=== PATIENT | female | born 1965 | race Caucasian/White ===

== ENCOUNTER 2017-12-26 23:22 | Emergency (ER) | payer BC, OTHER ==
[2017-12-27] MEDS ORDERED: Rabies Immune Globulin 10 ML* 150 UNIT/ML VIAL IM ONE (00:04)
[2017-12-27] MEDS ORDERED: Rabies Vaccine (RabAvert)* 2.5 UNITS VIAL IM ONE (00:06)
--- NOTE | 2017-12-27 00:06 | ED ---
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 The Pt was exposed to cat that was bitten by an unknown wild animal. The animal had bitten the cat in the neck and the Pt states she was possibly exposed when she examined the cat and noticed saliva from the wound was on her hand where she had an opened wound. Due to the open wound she has concerns about possibly geraldine rabies due to contacting the saliva of the wild animal. - History of Current Complaint Chief Complaint: EDGeneral Stated Complaint: EXPOSURE Time Seen by Provider: 12/26/17 23:53 Hx Obtained From: Patient Hx Last Menstrual Period: 10/07/14 Onset of Injury: Happened hours ago Severity Currently: None Pain Intensity: 0 Pain Scale Used: 0-10 Numeric Associated Signs And Symptoms: Positive: Negative - Allergies/Home Medications Allergies/Adverse Reactions: Allergies Allergy/AdvReac Type Severity Reaction Status Date / Time silicone Allergy Rash Verified 12/26/17 23:31 sodium benzoate Allergy Hives Verified 12/26/17 23:31 Sulfa (Sulfonamide Allergy Rash And Verified 12/26/17 23:31 Antibiotics) Itching PMH/Surg Hx/FS Hx/Imm Hx Endocrine/Hematology History: Reports: Hx Thyroid Disease Denies: Hx Diabetes Cardiovascular History: Denies: Hx Hypertension Respiratory History: Reports: Hx Asthma - r/t URI, Hx Chronic Bronchitis - Acute Spasmodic, Hx Pneumonia, Hx Seasonal Allergies Denies: Hx Chronic Obstructive Pulmonary Disease (COPD) GI History: Reports: Hx Gastroesophageal Reflux Disease Denies: Hx Ulcer History: Reports: Hx Kidney Stones Musculoskeletal History: Reports: Hx Arthritis, Hx Back Problems, Hx Bursitis, Hx Tendonitis Denies: Hx Scoliosis Sensory History: Reports: Hx Contacts or Glasses, Hx Hearing Problem - Minor Hearing Loss Opthamlomology History: Reports: Hx Contacts or Glasses Neurological History: Reports: Hx Headaches, Hx Migraine Denies: Other Neuro Impairments/Disorders Psychiatric History: Reports: Hx Anxiety - Cancer History Hx Chemotherapy: No Hx Radiation Therapy: No - Surgical History Surgery Procedure, Year, and Place: RT KNEE ARTHROSCOPY/UTERINE FIBROID REMOVED (NON INVASIVE) lobectomy Infectious Disease History: No Infectious Disease History: Denies: Hx Clostridium Difficile, Hx Hepatitis, Hx Human Immunodeficiency Virus (HIV), Hx of Known/Suspected MRSA, Hx Shingles, Hx Tuberculosis, Hx Known/ Suspected VRE, Hx Known/Suspected VRSA, History Other Infectious Disease, Traveled Outside the [place] in Last 30 Days - Social History Alcohol Use: Rare Substance Use Type: Reports: None Smoking Status (MU): Never Smoked Tobacco Have You Smoked in the Last Year: No Review of Systems Negative: Fever Negative: Headache All Other Systems Reviewed And Are Negative: Yes Physical Exam - Summary Physical Exam Summary: Appearance: Well-appearing, Well-nourished, lying in bed comfortable Skin: Warm, dry, no obvious rash Eyes: sclera anicteric, no conjunctival pallor ENT: mucous membranes moist Neck: deferred Respiratory: No signs of respiratory distress Cardiovascular: Appears well perfused, pulses are nml Abdomen: deferred Musculoskeletal: Moving all 4 extremities without obvious discomfort Neurological: Awake and alert, mentation is normal, speech is fluent and appropriate Psychiatric: affect is normal, does not appear anxious or depressed Triage Information Reviewed: Yes Vital Signs On Initial Exam: Initial Vitals Temp Pulse Resp BP Pulse Ox 98.3 F 83 16 133/68 97 12/26/17 23:26 12/26/17 23:26 12/26/17 23:26 12/26/17 23:26 12/26/17 23:26 Vital Signs Reviewed: Yes Diagnostics - Vital Signs Vital Signs Temp Pulse Resp BP Pulse Ox 12/26/17 23:26 98.3 F 83 16 133/68 97 - Laboratory Lab Statement: Any lab studies that have been ordered have been reviewed, and results considered in the medical decision making process. Bite Injury Course/Dx - Course Course Of Treatment: This patient is a 52 year old F presenting to [facility] accompanied with a chief complaint of possible rabies exposure IV THERAPY NURSE. The Pt was given the first precautionary prophylaxis rabies vaccination. The plan for obtaining following treatments and discharge was discussed and the Pt was agreeable with this plan. - Diagnoses Provider Diagnosis: Rabies, need for prophylactic vaccination against Discharge - Sign-Out/Discharge Documenting (check all that apply): Patient Departure - Discharge - Discharge Plan Condition: Stable Disposition: HOME Patient Education Materials: Rabies Immune Globulin (By injection), Rabies (ED) , Rabies Vaccine (ED) Referrals: Bryant Gudino MD [Primary Care Provider] - Additional Instructions: I believe the Department of Public Health can complete the rabies series for you. The next injection should be done Friday or Friday. - Attestation Statements Document Initiated by Scribe: Yes Documenting Scribe: Bertram Mckinley Provider For Whom Scribe is Documenting (Include Credential): Thai Walton MD Scribe Attestation: IBertram, scribed for Thai Walton MD on 12/27/17 at 0051.
[2017-12-27 01:13] VITALS: BP 112/74
== END 2017-12-27 01:00 | disposition home or self-care (01) ==
LOC: ED 23:22
DX: Z20.3 Contact with and (suspected) exposure to rabies (principal)
CPT/HCPCS: 90375; 90471; 90675; 99282

== ENCOUNTER 2017-12-29 11:00 | Emergency (ER) | payer BC, OTHER ==
[2017-12-29 11:07] VITALS: BP 145/75
[2017-12-29] MEDS ORDERED: Rabies Immune Globulin 2 ML* 150 UNITS/ML VIAL IM ONE (12:18)
--- NOTE | 2017-12-29 15:21 | ED ---
Bite Injury/Animal - HPI Summary HPI Summary: Patient is a 52 y/o F presenting to ED for rabies immunoglobuin. She was here three days ago for rabies vaccine and immunoglobin. Patient reported that her cat was bitten by an unknown animal. She investigated the cat's puncture wounds with her bare hands and notes that at the time she had two open cuts on her hands from a coin box inspector. Patient states that she received the rabies vaccine and immunoglobin full course while at [facility] three days ago but states that she did not receive immunoglobin at her cut sites. Health department sent patient back to ED to receive immunoglobin at these sites. PMHx of HTN and diabetes is denied. Patient denies foaming at the mouth, fever, chills, BONILLA, ear pain, sore throat, blurred vision, double vision, neck pain, CP, SOB, ABD pain, back pain, dysuria, hematuria, blood in the stool, edema, bruising, and rashes. On triage, pain is denied, nothing is noted to aggravate/alleviate Sx. Home medications and allergies are reviewed. - History of Current Complaint Chief Complaint: EDAnimalBite Stated Complaint: ADD RABIES INJECTION Time Seen by Provider: 12/29/17 11:01 Hx Obtained From: Patient Hx Last Menstrual Period: 10/07/14 Onset of Injury: Happened days ago - incident occurred three days ago Type of Bite: Wild Animal - patient's cat was bit by wild animal, patient came in contact with wild animal's saliva Has Animal Been Immunized?: No Severity Currently: None Pain Intensity: 0 Pain Scale Used: 0-10 Numeric Character: Abrasion/Laceration - saliva came in contact with patient's abrasion Aggravating Factor(s): Nothing Alleviating Factor(s): Nothing Associated Signs And Symptoms: Positive: Negative Animal Available for Observation: No - Allergies/Home Medications Allergies/Adverse Reactions: Allergies Allergy/AdvReac Type Severity Reaction Status Date / Time neomycin Allergy Rash Verified 12/29/17 11:21 silicone Allergy Rash Verified 12/29/17 11:21 sodium benzoate Allergy Hives Verified 12/29/17 11:21 Sulfa (Sulfonamide Allergy Rash And Verified 12/29/17 11:21 Antibiotics) Itching Home Medications: Home Medications Acetaminophen [Pain Reliever] 500 - 1,000 mg PO DAILY PRN 12/29/17 [History Confirmed 12/29/17] LoraTADine TAB(NF) [Claritin 10 MG TAB(NF)] 10 mg PO DAILY 12/29/17 [History Confirmed 12/29/17] Mesalamine CAP(NF) [Pentasa(NF)] 500 mg PO BID 12/29/17 [History Confirmed 12/29] Naproxen Sodium [Aleve] 220 mg PO DAILY PRN 12/29/17 [History Confirmed 12/29/17 ] Thyroid,Pork [Thyroid] 120 mg PO DAILY 12/29/17 [History Confirmed 12/29/17] PMH/Surg Hx/FS Hx/Imm Hx Endocrine/Hematology History: Reports: Hx Thyroid Disease Denies: Hx Diabetes Cardiovascular History: Denies: Hx Hypertension Respiratory History: Reports: Hx Asthma - r/t URI, Hx Chronic Bronchitis - Acute Spasmodic, Hx Pneumonia, Hx Seasonal Allergies Denies: Hx Chronic Obstructive Pulmonary Disease (COPD) GI History: Reports: Hx Gastroesophageal Reflux Disease Denies: Hx Ulcer History: Reports: Hx Kidney Stones Musculoskeletal History: Reports: Hx Arthritis, Hx Back Problems, Hx Bursitis, Hx Tendonitis Denies: Hx Scoliosis Sensory History: Reports: Hx Contacts or Glasses, Hx Hearing Problem - Minor Hearing Loss Opthamlomology History: Reports: Hx Contacts or Glasses Neurological History: Reports: Hx Headaches, Hx Migraine Denies: Other Neuro Impairments/Disorders Psychiatric History: Reports: Hx Anxiety - Cancer History Hx Chemotherapy: No Hx Radiation Therapy: No - Surgical History Surgery Procedure, Year, and Place: RT KNEE ARTHROSCOPY/UTERINE FIBROID REMOVED (NON INVASIVE) lobectomy Infectious Disease History: No Infectious Disease History: Denies: Hx Clostridium Difficile, Hx Hepatitis, Hx Human Immunodeficiency Virus (HIV), Hx of Known/Suspected MRSA, Hx Shingles, Hx Tuberculosis, Hx Known/ Suspected VRE, Hx Known/Suspected VRSA, History Other Infectious Disease, Traveled Outside the [place] in Last 30 Days - Family History Known Family History: Negative: Blood Disorder - Social History Alcohol Use: None Substance Use Type: Reports: None Smoking Status (MU): Never Smoked Tobacco Have You Smoked in the Last Year: No Review of Systems Positive: Other - NEGATIVE: mouth foaming . Negative: Fever, Chills Positive: Other - NEGATIVE: double vision . Negative: Blurred Vision Negative: Sore Throat, Ear Ache Negative: Chest Pain Negative: Shortness Of Breath Negative: Abdominal Pain, Vomiting, Diarrhea Positive: other - NEGATIVE: blood in stool . Negative: dysuria, hematuria Negative: Edema Positive: Other - two abrasions at hands . Negative: Rash, Bruising Negative: Headache Negative: Anxious, Depressed All Other Systems Reviewed And Are Negative: No Physical Exam - Summary Physical Exam Summary: Appearance: Alert, conversive, nontoxic appearing Skin: Warm, dry, no mottling, no rashes, no contusions; two small closed abrasions at left index finger, lateral aspect of the distal tip and dorsum of the right middle finger at the PIP joint. HEENT: EOMI, PERRL, moist mucous membranes Neck: No masses on the neck, supple Respiratory: Clear to auscultation, breath sounds present, no rales, no rhonchi , no wheezes Cardiovascular: RRR, pulses are symmetrical in both lower and upper extremities Abdomen: Soft, non-tender Bowel Sounds: Present Musculoskeletal: No CVA tenderness, no obvious deformity, moving all extremities in a grossly normal manner Neurological: A&Ox3, CN II-XII Intact, moving all extremities symmetrically Psychiatric: Normal affect and mood Triage Information Reviewed: Yes Vital Signs On Initial Exam: Initial Vitals Temp Pulse Resp BP Pulse Ox 99.0 F 72 16 145/75 98 12/29/17 11:03 12/29/17 11:03 12/29/17 11:03 12/29/17 11:03 12/29/17 11:03 Vital Signs Reviewed: Yes Diagnostics - Vital Signs Vital Signs Temp Pulse Resp BP Pulse Ox 12/29/17 11:03 99.0 F 72 16 145/75 98 - Laboratory Lab Statement: Any lab studies that have been ordered have been reviewed, and results considered in the medical decision making process. Re-Evaluation - Re-Evaluation First Eval Re-Evaluation Time: 12:16 Comment: Lucina Rodriguez from the health department was contacted, she states that as much immunoglobin as possible should be injected to cut sites Second Eval Re-Evaluation Time: 12:44 Comment: Discussed what health department stated with patient. Patient is agreeable with receiving more immunoglobin. Third Eval Re-Evaluation Time: 14:10 Comment: .25 cc of immunoglobin to both closed abrasions at the left index finger, distal tip, lateral aspect and to the dorsum of the right middle finger at the pip joint. Tolerated well, no complications. Patient will be discharged to home. She has been in touch with health department and will continue series of vaccines. Patient is agreeable with this plan. Bite Injury Course/Dx - Course Course Of Treatment: Patient is a 52 y/o F presenting to ED for rabies immunoglobuin. She was here three days ago for rabies vaccine and immunoglobin. Patient reported that her cat was bitten by an unknown animal with rabies. She investigated the cat's puncture wounds with her bare hands and notes that at the time she had two open cuts on her hands from a coin box inspector. Patient states that she received the rabies vaccine and immunoglobin full course while at [facility] three days ago but states that she did not receive immunoglobin at her cut sites. Health department sent patient back to ED to receive immunoglobin at these sites. On physical exam, patient is noted to have two small closed abrasions at left index finger, lateral aspect of the distal tip and dorsum of the right middle finger at the PIP joint. Health department, Lucina Rodriguez, was consulted on patient's case, patient will receive immunoglobuin injections at closed abrasion sites. .25 cc of immunoglobin injected to both closed abrasion sites. Tolerated well, no complications. Patient will be discharged to home. She has been in touch with health department and will continue series of vaccines. Patient is agreeable with this plan. Dx of suspected rabies. - Diagnoses Provider Diagnosis: Suspected rabies Discharge - Sign-Out/Discharge Documenting (check all that apply): Patient Departure - discharge - Discharge Plan Condition: Stable Disposition: HOME Patient Education Materials: Rabies Immune Globulin (By injection) Referrals: Bryant Gudino MD [Primary Care Provider] - Additional Instructions: Please followup with the Health Dept for further care and vaccines for your possible rabies exposure. return if worse or any new symptoms. Take tylenol or motrin for pain. Please also followup with your primary care physician. - Billing Disposition and Condition Condition: STABLE Disposition: Home - Attestation Statements Document Initiated by Scribe: Yes Documenting Scribe: Pedro Rodriguez Provider For Whom Scribe is Documenting (Include Credential): Suzan Chase MD Scribe Attestation: Pedro Sales , scribed for Suzan Chase MD on 12/29/17 at 2031. Scribe Documentation Reviewed: Yes Provider Attestation: The documentation as recorded by the scribe, Pedro Rodriguez accurately reflects the service I personally performed and the decisions made by me, Suzan Chase MD
== END 2017-12-29 14:47 | disposition home or self-care (01) ==
LOC: ED 11:00
DX: Z20.3 Contact with and (suspected) exposure to rabies (principal); E07.9 Disorder of thyroid, unspecified; Z88.1 Allergy status to other antibiotic agents; Z88.2 Allergy status to sulfonamides
CPT/HCPCS: 90375; 96372; 99281

== ENCOUNTER → 2019-01-08 10:59 | Day surgery (SDC) | payer BC ==
--- NOTE | 2018-12-31 13:53 | HP ---
PREOPERATIVE HISTORY AND PHYSICAL: DATE OF SURGERY/ADMISSION: 01/08/19 DATE OF OFFICE VISIT/ENCOUNTER: 12/28/18 ATTENDING SURGEON: Negra Medrano MD.* (DICTATED BY KRIS ALVAREZ) PROCEDURE: Arthrodesis right small finger distal interphalangeal joint. HISTORY OF PRESENT ILLNESS: This is a 53-year-old female who complains of pain in her right small finger ongoing for 2-1/2 years and involves her DIP joint. It bothers her when hits it on things and it can be quite painful. There was no specific injury. She reports that the symptoms have gradually gotten worse over time. She has also noticed loss of range of motion. This is her dominant hand. She denies any associated numbness or tingling. X-rays show significant degenerative changes at the DIP joint right small finger. The patient has consented to proceed with surgical intervention at this time in the form of a fusion of the joint. PAST MEDICAL HISTORY: 1. Hypothyroidism. 2. Ulcerative colitis. 3. Exercise-induced asthma. 4. GERD. 5. Meniere disease. PAST SURGICAL HISTORY: 1. Right knee arthroscopy. 2. Breast lumpectomy. 3. Myomectomy. CURRENT MEDICATIONS: 1. Betahistine HCl 8 mg daily. 2. Claritin 10 mg daily. 3. Estradiol patch. 4. Ferrex 150 mg daily. 5. Magnesium citrate 125 mg daily. 6. Pentasa 500 mg twice a day. 7. Selenium 200 mcg daily. 8. Thyroid 120 mg daily. 9. Thyroid 30 mg daily. 10. Vitamin B12 500 mcg daily. 11. Vitamin D3 1000 units daily. ALLERGIES: BENZOIC ACID, NEOMYCIN, SODIUM BENZOATE, SULFA ANTIBIOTICS, all cause hives. FAMILY HISTORY: Diabetes, heart disease, hypertension, stroke. 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 She denies tobacco or recreational drug use. She drinks alcohol on rare occasion. REVIEW OF SYSTEMS: Negative for general, cephalic, cardiovascular, respiratory , GI, , other musculoskeletal, integumentary, endocrine, neurologic, and hematologic symptoms. Infectious Disease: Negative for MRSA, hepatitis C, HIV. PHYSICAL EXAMINATION GENERAL: A well-developed, well-nourished 53-year-old female, in no acute distress. VITAL SIGNS: Height 5 feet 3-1/2 inches, weight 151 pounds. Pulse rate 84, blood pressure 124/76. HEENT: Normocephalic, atraumatic. Pupils are equal, round, and reactive to light and accommodation. Extraocular movements are intact. Throat is clear. NECK: Supple. No palpable lymph nodes. PULMONARY: Lungs are clear to auscultation bilaterally. No wheezes, rales, or rhonchi. CARDIOVASCULAR: Regular rate and rhythm. S1, S2. No murmurs, rubs, or gallops. No edema. ABDOMEN: Positive bowel sounds. Soft, nontender. NEUROLOGICAL: Alert and oriented x3. Cranial nerves II through XII are intact. Sensation is intact to light touch. NEUROVASCULAR: Neurovascular function is intact. MUSCULOSKELETAL: On exam of her right hand, she has erythema on the dorsal aspect of her small finger DIP joint, but no sign of infection. There are obvious arthritic changes noted on clinical inspection. She has flexion deformity at the joint and increased pain with any active or passive motion. She can make a fist, but has trouble squeezing it tightly. SKIN: Intact. 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 PLAN: The patient is scheduled to undergo an arthrodesis right small finger distal interphalangeal joint with Dr. Medrano on 01/08/19. She will return to the office 10 days postop for followup and suture removal. A prescription for Percocet was e- scribed to the patient's pharmacy for postoperative pain management. KRIS ALVAREZ [id number]/[facility] #: [id number] JAKY
[~2019-01-08 10:59] MED LIST: Buffered Lidocaine 1% SYRIN* 1 ML/SYRINGE INTRADERM ONE; Bupivacaine 0.5% SDV PF* 30ML VIAL ONE; Lactated Ringers 1000 ML Bag* 1,000 ML IV SCH; Lidocaine 2% PF * 5 ML VIAL ONE; Midazolam* 1 MG/ML 2 ML VIAL (2 MG) ONE; Midazolam* 1 MG/ML 5 ML VIAL (5 MG) ONE; Naloxone* 0.4 MG/ML 1 ML VIAL IV PRN; Propofol* 10 MG/ML 20 ML BTL ONE; Sodium Citrate/Citric Acid* 15 ML UDC ONE; Sodium Citrate/Citric Acid* 15 ML UDC PO ONE; ceFAZolin 2 GM PREMIX in ORs 2 GM/50 ML BAG ONE; fentaNYL* 50 MCG/ML 2 ML VIAL (100 MCG VIAL) ONE
[2019-01-08 14:06] VITALS: BP 102/80
--- NOTE | 2019-01-08 14:15 | OP ---
DATE OF OPERATION: 01/08/19 [facility] DATE OF : 63 SURGEON: Negra Medrano MD CULINARY MANAGER: KRIS Roldan ANESTHESIA: Local MAC. 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 OPERATIVE PROCEDURE: DIP fusion, right small finger. ESTIMATED BLOOD LOSS: Zero. TOURNIQUET TIME: Approximately 25 minutes. INDICATIONS FOR PROCEDURE: Julissa is a 53-year-old female who has painful arthritis at the DIP joint of her right small finger. She presents for DIP fusion. DESCRIPTION OF PROCEDURE: The patient was brought to the operating room, was given a sedation anesthetic and a digital block with 10 cc of 1% plain lidocaine. The skin of her right hand and forearm was prepped and draped in the usual sterile fashion. The finger was exsanguinated with a Tourni-Cot which was left in place during the procedure. An H-shaped incision was made on the dorsal aspect of the DIP joint with a full-thickness skin incision all the way down to the DIP joint through the extensor tendon. The joint was flexed open and then we were able to use a rongeur to remove all of the articular cartilage and subchondral bone from the middle and distal phalanx. A guidewire from the micro Acutrak set was then placed through the center of the medullary canal of the middle phalanx and then drilled out antegrade through the center of the intramedullary canal of the distal phalanx. The wire was then passed retrograde through the middle phalanx and its position was checked on the C-arm , the AP and lateral views. It was found to be centrally located in both the distal and middle phalanx. We then drilled over the guidewire and placed an 18 mm micro Acutrak screw which allowed complete apposition of the two bones at the DIP joint. The wound was irrigated and the skin edges reapproximated with 4 -0 nylon suture. The wounds were dressed with Xeroform, 4x4, Webril, and an Alumafoam splint. The patient tolerated the procedure well and was brought to the recovery room in good condition. [id number]/[facility] #: [id number] [facility]
== END | disposition home or self-care (01) ==
LOC: OREAST 10:59
PROVIDERS: ATTEND Orthopaedic Surgery
DX: M19.041 Primary osteoarthritis, right hand (principal); E03.9 Hypothyroidism, unspecified; K21.9 Gastro-esophageal reflux disease without esophagitis; K51.90 Ulcerative colitis, unspecified, without complications; J45.990 Exercise induced bronchospasm; H81.09 Meniere's disease, unspecified ear
CPT/HCPCS: 76000; 81025; A9270-GY; C1713; C1776; J0690; J2250; J2704; J3010; J3490